=== PATIENT | female | born 1955 | race Caucasian/White ===

== ENCOUNTER 2018-10-11 10:30 | Emergency (ER) | payer MEDICARE, MEDICAID ==
[~2018-10-11] VITALS: Ht 157.5 cm; Wt 61.4 kg
[2018-10-11 11:31] LABS: BASOPHILS # (AUTO) 0.1 X10'3 (0-0.2); BASOPHILS % (AUTO) 0.6 % (0-1); EOSINOPHILS # (AUTO) 0.1 X10'3 (0-0.9); EOSINOPHILS % (AUTO) 0.6 % (0-6); HEMATOCRIT 42.1 % (35.0-45.0); HEMOGLOBIN 13.9 g/dl (12.0-16.0); LYMPHOCYTES # (AUTO) 1.7 X10'3 (1.1-4.8); LYMPHOCYTES % (AUTO) 19.4 % (21-51); MEAN CORPUSCULAR HEMOGLOBIN 31.4 PG (27.0-31.0); MEAN CORPUSCULAR VOLUME 95.3 FL (78-98); MEAN PLATELET VOLUME 7.9 FL (7.4-10.4); MONOCYTES # (AUTO) 0.5 X10'3 (0-0.9); MONOCYTES % (AUTO) 5.3 % (2-12); NEUTROPHILS # (AUTO) 6.6 X10'3 (1.8-7.7); NEUTROPHILS % (AUTO) 74.1 % (42-75); PLATELET COUNT 300 X10'3 (140-440); RED BLOOD COUNT 4.42 X10'6 (4.20-5.60); RED CELL DISTRIBUTION WIDTH 14.3 % (11.5-14.5); WHITE BLOOD COUNT 8.9 X10'3 (4.5-11.0)
[2018-10-11] MEDS ORDERED: UMEC62.5 IH (11:47)
[2018-10-11] MEDS ORDERED: BUDE10.2 INH (11:47)
[2018-10-11] MEDS ORDERED: ALBU18HF2 INH (11:47)
[2018-10-11 11:50] LABS: URINE HCG NEGATIVE (NEG)
[2018-10-11 11:55] LABS: URINE AMPHETAMINE SCREEN NEGATIVE (Neg); URINE BARBITUATE SCREEN NEGATIVE (Neg); URINE BENZODIAZEPINES SCREEN NEGATIVE (Neg); URINE CANNABINOID SCREEN NEGATIVE (Neg); URINE COCAINE SCREEN NEGATIVE (Neg); URINE METHADONE SCREEN NEGATIVE (Neg); URINE OPIATE SCREEN NEGATIVE (Neg); URINE PHENCYCLIDINE SCREEN NEGATIVE (Neg)
[2018-10-11 11:59] LABS: ALANINE AMINOTRANSFERASE 19 U/L (12-78); ALBUMIN 3.6 G/DL (3.4-5.0); ALBUMIN/GLOBULIN RATIO 1.1 (1.1-1.5); ALKALINE PHOSPHATASE 62 IU/L (46-116); ANION GAP 6 (8-16); ASPARTATE AMINO TRANSFERASE 7 U/L (10-37); BILIRUBIN,TOTAL 0.3 MG/DL (0.1-1.0); BLOOD UREA NITROGEN 13 MG/DL (7-18); BUN/CREATININE RATIO 22.8 (6.6-38.0); CALCIUM 8.8 MG/DL (8.5-10.1); CHLORIDE 106 MMOL/L (99-107); CREATININE 0.57 MG/DL (0.40-0.90); GLUCOSE 96 MG/DL (70-104); POTASSIUM 4.1 MMOL/L (3.5-5.1); SODIUM 141 MMOL/L (135-145); TOTAL CARBON DIOXIDE 28.7 MMOL/L (24-32); TOTAL PROTEIN 6.9 G/DL (6.4-8.2); eGFR > 90 ML/MIN
[2018-10-11 12:15] LABS: ETHANOL < 0.010 GM/DL (0.0-0.010)
--- NOTE | 2018-10-11 12:48 | NUR ---
PT BROUGHT OVER TO OVERFLOW 23 FROM ER 16. PT IS ON OXYGEN 2 LITERS 20/10. PT STATES SHE GETS PANIC ATTACKS DUE TO HER REDUCED LUNG CAPACITY. PT REQUESTING A NEBULZER TREATMENT. SHE WAS SUPPOSE TO GET ONE AT HOME BECAUSE SHE USES HER RESCUE INHALER TOO MUCH DURING THE DAY. PT'S BELONGINGS PLACED IN BAGS BY THE TECHS AND PT CHANGED INTO GREEN SCRUBS.N PT CALM AND COOPERATIVE.
[2018-10-11] MEDS ORDERED: ipratropium/albuterol 3ml nebule NEB ONE (13:15)
[2018-10-11] MEDS ORDERED: hyDROXYzine 50 mg/ml injection ***IM only IM ONE (13:30)
[2018-10-11] MEDS ORDERED: albuterol 2.5 MG/3 ML nebule NEB PRN (13:30)
--- NOTE | 2018-10-11 14:02 | NUR ---
Hydrozyzine 50 IM administered as ordered to decrease anxiety and increase comfort. Patient states "I have end stage lung disease and I feel anxious all the time. Then my anxiety turns into panic and I feel like I'm sufficating. That makes my anxiety even worse. I wish I can get an injection to just put me out for good."
[2018-10-11] MEDS ORDERED: albuterol 2.5 MG/3 ML nebule NEB SCH (15:00)
[2018-10-11] MEDS ORDERED: ipratropium 0.5 MG/2.5ML nebule IH SCH (15:00)
[2018-10-11] MEDS ORDERED: LORazepam 1 MG tablet PO ONE (16:20)
--- NOTE | 2018-10-11 17:39 | NUR ---
Dr. Cross here at 1600 to evaluate patient for medication management. Detailed evaluation followed. Patient cooperative. Dr. Cross requested that patient be discharged with a tank of oxygen, have medications called into [facility] and give patient the phone numbers of [facility], both in [place] and [place] for follow-up care. All orders addressed. Patient left in the company of friends. All discharge orders discussed with patient. Patient acknowledged understanding of directions.
[2018-10-11 17:45] VITALS: BP 128/67
[2018-10-11] MEDS ORDERED: budesonide 0.5mg/2ml UD nebule IH SCH (21:00)
== END 2018-10-11 17:35 | disposition home or self-care (01) ==
LOC: ER 10:31
DX: F41.9 Anxiety disorder, unspecified (principal); R45.851 Suicidal ideations; J44.9 Chronic obstructive pulmonary disease, unspecified; J98.01 Acute bronchospasm; Z79.899 Other long term (current) drug therapy
CPT/HCPCS: 36415; 80053; 80305; 80320; 81025; 84443; 85025; 94640; 94760; 96372; 99284; J3410; 99283

== ENCOUNTER 2019-12-22 12:59 | Observation (INO) | payer MEDICARE, MEDICAID ==
[~2019-12-22] VITALS: Ht 157.5 cm; Wt 64.5 kg
[~2019-12-22 12:59] MED LIST: ALBU18HF2 INH; BUDE10.2 INH; UMEC62.5 IH
[2019-12-22] MEDS ORDERED: mag hydrox/Alum hydrox/simeth 30ml oral suspension PO ONE (13:30)
[2019-12-22] MEDS ORDERED: pantoprazole 40 MG vial IV ONE (13:30)
[2019-12-22] MEDS ORDERED: LIDOcaine Viscous 15ml cup MM ONE (13:30)
[2019-12-22] MEDS ORDERED: ondansetron/PF 4mg/2ml inj IV ONE (13:30)
[2019-12-22] MEDS ORDERED: famotidine/PF 10 mg/ml inj IV ONE (13:30)
[2019-12-22] MEDS ORDERED: normal saline 1000ml 1,000 ML IV ONE (13:30)
[2019-12-22 13:47] LABS: BASOPHILS # (AUTO) 0.1 X10'3 (0-0.2); BASOPHILS % (AUTO) 1.1 % (0-1); EOSINOPHILS # (AUTO) 0.1 X10'3 (0-0.9); HEMATOCRIT 40.6 % (35.0-45.0); HEMOGLOBIN 13.3 g/dl (12.0-16.0); LYMPHOCYTES # (AUTO) 2.4 X10'3 (1.1-4.8); LYMPHOCYTES % (AUTO) 28.6 % (21-51); MEAN CORPUSCULAR HEMOGLOBIN 30.6 PG (27.0-31.0); MEAN CORPUSCULAR HGB CONC 32.8 g/dL (33.0-36.5); MEAN CORPUSCULAR VOLUME 93.3 FL (78-98); MEAN PLATELET VOLUME 8.5 FL (7.4-10.4); MONOCYTES # (AUTO) 0.5 X10'3 (0-0.9); NEUTROPHILS # (AUTO) 5.3 X10'3 (1.8-7.7); NEUTROPHILS % (AUTO) 63.3 % (42-75); PLATELET COUNT 296 X10'3 (140-440); RED BLOOD COUNT 4.35 X10'6 (4.20-5.60); RED CELL DISTRIBUTION WIDTH 14.6 % (11.5-14.5); WHITE BLOOD COUNT 8.4 X10'3 (4.5-11.0)
[2019-12-22 14:07] LABS: ALANINE AMINOTRANSFERASE 21 U/L (12-78); ALBUMIN 3.5 G/DL (3.4-5.0); ALBUMIN/GLOBULIN RATIO 1.1 (1.1-1.5); ALKALINE PHOSPHATASE 56 IU/L (46-116); ANION GAP 5 (8-16); ASPARTATE AMINO TRANSFERASE 14 U/L (10-37); BILIRUBIN,TOTAL 0.2 MG/DL (0.1-1.0); BLOOD UREA NITROGEN 11 MG/DL (7-18); CHLORIDE 104 MMOL/L (99-107); CREATININE 0.61 MG/DL (0.40-0.90); GLUCOSE 84 MG/DL (70-104); POTASSIUM 4.4 MMOL/L (3.5-5.1); SODIUM 140 MMOL/L (135-145); TOTAL CARBON DIOXIDE 31.4 MMOL/L (24-32); TOTAL PROTEIN 6.8 G/DL (6.4-8.2); eGFR > 90 ML/MIN
[2019-12-22 14:11] LABS: D-DIMER < 0.19 MG/L FEU (0-0.50)
[2019-12-22] MEDS ORDERED: magnesium 4gm in 100ml NS 100 ML IV PRN (14:30)
[2019-12-22] MEDS ORDERED: ondansetron/PF 4mg/2ml inj IV PRN (14:30)
[2019-12-22] MEDS ORDERED: metoprolol tartrate 1mg/ml inj IV PRN (14:30)
[2019-12-22] MEDS ORDERED: mag hydrox/Alum hydrox/simeth 30ml oral suspension PO PRN (14:30)
[2019-12-22] MEDS ORDERED: regadenoson 0.4mg/5ml syringe IV PRN (14:30)
[2019-12-22] MEDS ORDERED: morphine 2 MG/ML inj. syringe IV PRN ×2 (14:30)
[2019-12-22] MEDS ORDERED: potassium CL 10mEq/100ml bag 100 ML IV PRN ×2 (14:30)
[2019-12-22] MEDS ORDERED: magnesium Cl slow-release 64mg tablet PO PRN (14:30)
[2019-12-22] MEDS ORDERED: HYDROcodone/acetaminophen 10/325mg tab PO PRN (14:30)
[2019-12-22] MEDS ORDERED: nitroGLYCERIN 0.4mg SUBLingual tab SL PRN ×2 (14:30)
[2019-12-22] MEDS ORDERED: magnesium hydroxide 30ml (MOM) UD suspension PO PRN (14:30)
[2019-12-22] MEDS ORDERED: magnesium 2GM in 50ml NS 50 ML IV PRN (14:30)
[2019-12-22] MEDS ORDERED: HYDROcodone/acetaminophen 5mg/325mg tablet PO PRN (14:30)
[2019-12-22] MEDS ORDERED: aminophylline 250mg/10ml inj. IV PRN (14:30)
[2019-12-22] MEDS ORDERED: potassium Cl 20 mEq SR tablet PO PRN ×2 (14:30)
[2019-12-22] MEDS ORDERED: acetaminophen 325mg tablet PO PRN ×2 (14:30)
[2019-12-22] MEDS: normal saline 1000ml 1,000 ML IV SCH ×2 (15:03→21:22)
[2019-12-22] MEDS ORDERED: TRAZ-251 PO (15:07)
[2019-12-22] MEDS ORDERED: ESCI10TA61 PO (15:07)
[2019-12-22] MEDS ORDERED: CLON-473 PO (15:07)
[2019-12-22] MEDS ORDERED: LORA-269 PO (15:07)
[2019-12-22] MEDS ORDERED: LORA-268 PO (15:12)
[2019-12-22] MEDS ORDERED: ipratropium/albuterol 3ml nebule NEB PRN (15:50)
[2019-12-22] MEDS ORDERED: LORazepam 0.5 MG tablet PO PRN (15:50)
[2019-12-22] MEDS ORDERED: LORazepam 2 mg/ml vial IV PRN (15:50)
[2019-12-22] MEDS ORDERED: methylPREDNISolone sod succ 125mg/2ml vial IV ONE (15:50)
[2019-12-22] MEDS ORDERED: iohexol 300mg/ml 100ml inj. ONE (15:59)
[2019-12-22] MEDS ORDERED: ipratropium/albuterol 3ml nebule IH SCH (16:05)
--- NOTE | 2019-12-22 16:45 | NUR ---
Report given to the receiving RN on ACCE unit. Pt will be transported via gurney as soon as Echo is completed at bedside.
[2019-12-22 17:51] VITALS: BP 146/75
[2019-12-22 18:00] VITALS: BP 155/67
--- NOTE | 2019-12-22 18:30 | NUR ---
Patient in room MED 315. I have received report from BASIM JUNG and had the opportunity to ask questions and assume patient care.
--- NOTE | 2019-12-22 18:50 | NUR ---
Problems reprioritized. Patient report given, questions answered & plan of care reviewed with FABIANA Ribeiro.
[2019-12-22] MEDS: K and/or MAG REPLACEMENT MC SCH (20:00)
[2019-12-22] MEDS: budesonide 0.5mg/2ml UD nebule IH SCH (20:11)
[2019-12-22] MEDS: ipratropium/albuterol 3ml nebule NEB SCH ×2 (20:11→23:00)
[2019-12-22] MEDS ORDERED: cloNIDine 0.1 mg tablet PO SCH (21:00)
[2019-12-22] MEDS ORDERED: temazepam 15mg capsule PO PRN (21:00)
[2019-12-22] MEDS: methylPREDNISolone sod succ 125mg/2ml vial IV SCH (21:19)
[2019-12-22] MEDS: famotidine 20mg tablet PO SCH (21:19)
[2019-12-22 21:50] LABS: ABG BASE EXCESS -2.1 mmol/L (-2.0-2.0); ABG HCO3 23.9 mmol/L (22.0-26.0); ABG OXYGEN SATURATION 96.6 % (94-97); ABG PCO2 (T) 47.1 mmHg (32.0-45.0); ABG PO2 (T) 89.1 mmHg (75.0-100.0); ALLEN'S TEST POSITIVE; FCOHb 0.5 % (0.0-3.9); FLOW 2 L/min; FMetHb 0.4 % (0.0-1.5); FO2Hb 95.7 % (94-97); PATIENT TEMPERATURE 37.6; RESPIRATORY RATE 24 b/min; TOTAL HEMOGLOBIN 13.7 G/dl (12.0-16.0)
[2019-12-22 22:00] VITALS: BP 136/73
[2019-12-23] VITALS (11 sets, daily range): BP systolic 89–164; BP diastolic 46–74
[2019-12-23 01:35] LABS: HEMATOCRIT 39.3 % (35.0-45.0); HEMOGLOBIN 13.1 g/dl (12.0-16.0); MEAN CORPUSCULAR HEMOGLOBIN 31.3 PG (27.0-31.0); MEAN CORPUSCULAR HGB CONC 33.2 g/dL (33.0-36.5); MEAN CORPUSCULAR VOLUME 94.1 FL (78-98); MEAN PLATELET VOLUME 8.7 FL (7.4-10.4); PLATELET COUNT 258 X10'3 (140-440); RED BLOOD COUNT 4.18 X10'6 (4.20-5.60); RED CELL DISTRIBUTION WIDTH 14.5 % (11.5-14.5); WHITE BLOOD COUNT 10.5 X10'3 (4.5-11.0)
[2019-12-23 01:50] LABS: ALBUMIN 3.3 G/DL (3.4-5.0); ANION GAP 4 (8-16); BLOOD UREA NITROGEN 11 MG/DL (7-18); BUN/CREATININE RATIO 14.5 (6.6-38.0); CALCIUM 8.6 MG/DL (8.5-10.1); CHLORIDE 105 MMOL/L (99-107); CHOLESTEROL 221 MG/DL (0-200); CREATININE 0.76 MG/DL (0.40-0.90); GLUCOSE 157 MG/DL (70-104); HDL CHOLESTEROL 74 MG/DL (35-60); LDL CHOLESTEROL 131 MG/DL (50-100); MAGNESIUM 1.7 MG/DL (1.5-2.4); PHOSPHORUS 2.3 MG/DL (2.3-4.5); SODIUM 139 MMOL/L (135-145); TOTAL CARBON DIOXIDE 30.5 MMOL/L (24-32); TRIGLYCERIDES 68 MG/DL (20-135); eGFR 77 ML/MIN
[2019-12-23 01:51] LABS: POTASSIUM 4.6 MMOL/L (3.5-5.1)
[2019-12-23] MEDS: methylPREDNISolone sod succ 125mg/2ml vial IV SCH ×3 (01:51→14:00)
--- NOTE | 2019-12-23 06:33 | NUR ---
Problems reprioritized. Patient report given, questions answered & plan of care reviewed with REUBEN JUNG.
--- NOTE | 2019-12-23 06:34 | NUR ---
Patient in room MED 315. I have received report from Bashir JUNG and had the opportunity to ask questions and assume patient care.
[2019-12-23] MEDS: famotidine 20mg tablet PO SCH (07:26)
[2019-12-23] MEDS: K and/or MAG REPLACEMENT MC SCH (08:00)
[2019-12-23] MEDS ORDERED: enoxaparin 40mg/0.4ml syringe SUBCUT SCH (08:00)
[2019-12-23] MEDS ORDERED: ESCITALOPRAM OXALATE 5 MG TABLET PO SCH (08:00)
[2019-12-23] MEDS: budesonide 0.5mg/2ml UD nebule IH SCH (08:04)
[2019-12-23] MEDS: ipratropium/albuterol 3ml nebule NEB SCH ×3 (08:04→15:16)
[2019-12-23] MEDS ORDERED: aspirin 325mg tablet PO SCH (08:30)
[2019-12-23] MEDS ORDERED: atorvastatin 20mg tablet PO SCH (08:55)
--- NOTE | 2019-12-23 13:00 | NUR ---
Dr. HAWKINS paged: PAGER ID: [phone] MESSAGE: [phone]: AU - salomon resulted. 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 ok to eat and discharge? nurse Marissa [phone]
[2019-12-23] MEDS ORDERED: PRED20TA PO (13:40)
[2019-12-23] MEDS ORDERED: ATR0.5NEB NEB (13:40)
--- NOTE | 2019-12-23 15:02 | NUR ---
patient refused lipitor and solumedrol orders, pt is discharged and waiting for ride, will continue medications when she gets home.
--- NOTE | 2019-12-23 15:45 | NUR ---
Patient is stable for discharge per md orders, discharge instructions reviewed w/ pt and all questions answered, new med prescriptions called in [facility] in [place], [facility]ed intact, clean dry dressing placed, bedside monitor removed, pt discharges to home at 1530 via private vehicle w/ granddaughter and daughter, all belongings w/ pt at time of discharge.
== END 2019-12-23 15:30 | disposition home or self-care (01) ==
LOC: ER 13:00 → ED HOLD 14:26 → MED 3N 17:30
PROVIDERS: ADMIT Family Medicine; ATTEND Family Medicine
DX: R07.89 Other chest pain (principal); I20.9 Angina pectoris, unspecified; R14.0 Abdominal distension (gaseous); J09.X1 Influenza due to identified novel influenza A virus with pneumonia; J98.4 Other disorders of lung; R73.9 Hyperglycemia, unspecified; E78.1 Pure hyperglyceridemia; F32.9 Major depressive disorder, single episode, unspecified; F41.0 Panic disorder [episodic paroxysmal anxiety]; Z87.891 Personal history of nicotine dependence; Z90.49 Acquired absence of other specified parts of digestive tract; Z98.51 Tubal ligation status; Z87.442 Personal history of urinary calculi; Z79.51 Long term (current) use of inhaled steroids; Z79.899 Other long term (current) drug therapy
CPT/HCPCS: 36415; 36600; 71045; 71250; 74177; 78452; 80048; 80053; 80061; 82803; 83735; 83880; 84100; 84443; 84484; 85018; 85025; 85027; 85379; 87081; 93005; 93017; 93306; 94640; 94760; 96361; 96372; 96374; 96375; 96376; 99285; A9500; C9113; G0378; J2060; J2405; J2785; J2930; J3490; J7030; Q9967; J1650; J7626